=== PATIENT | male | born 1995 | race Caucasian/White ===

== ENCOUNTER 2018-06-17 12:20 | Emergency (ER) | payer OTHER ==
[2018-06-17 12:34] VITALS: BP 157/81
--- NOTE | 2018-06-17 12:48 | EDPHY ---
H & P Stated Complaint: 3 days of cough fever and flu like s/s . Near syncope today Time Seen by Provider: 06/17/18 12:28 HPI/ROS: Chief Complaint: Fever, cough, body aches, sore throat HPI: Healthy fully vaccinated 22-year-old male presenting with 3 days of intermittent fevers and chills, mildly productive cough, body aches, sore throat. He has been taking Advil about twice a day and has been taking some NyQuil. Total little lightheaded this morning. No nausea vomiting or diarrhea. No abdominal pain. No chest pain or shortness of breath. His older brother has similar symptoms. Mild headache. He has just general fatigue and malaise. ROS: 10 systems were reviewed and were negative except those elements noted in the HPI. PMH: Denies Social History: No smoking, occasional alcohol, no recreational drug use Family History: non-contributory Physical Exam: Gen: Awake, Alert, No Distress HEENT: Nose: no rhinorrhea Eyes: PERRLA, EOMI Mouth: Moist mucosa Neck: Supple, no JVD Chest: nontender, lungs clear to auscultation Heart: S1, S2 normal, no murmur Abd: Soft, non-tender, no guarding Back: no CVA tenderness, no midline tenderness Ext: no edema, non-tender Skin: no rash Neuro: CN II-XII intact, Sensation grossly intact, Strength 5/5 in bilateral upper and lower extremities - Personal History Current Tetanus/Diphtheria Vaccine: Unsure Current Tetanus Diphtheria and Acellular Pertussis (TDAP): Unsure - Medical/Surgical History Hx Asthma: Yes Hx Chronic Respiratory Disease: No Hx Diabetes: No Hx Cardiac Disease: No Hx Renal Disease: No Hx Cirrhosis: No Hx Alcoholism: No Hx HIV/AIDS: No Hx Splenectomy or Spleen Trauma: No Other PMH: Asthma. ADD - Social History Smoking Status: Never smoked Constitutional: Initial Vital Signs Temperature (C) 37.5 C 06/17/18 12:26 Heart Rate 88 06/17/18 12:26 Respiratory Rate 16 06/17/18 12:26 Blood Pressure 157/81 H 06/17/18 12:26 O2 Sat (%) 95 06/17/18 12:26 O2 Delivery Mode Room Air Allergies/Adverse Reactions: aspirin [Aspirin] Allergy (Intermediate, Verified 06/17/18 12:32) ITCH Home Medications: Medication Instructions Recorded [facility] 01/31/10 Albuterol 01/23/15 Medical Decision Making ED Course/Re-evaluation: 22-year-old male with flu-like symptoms. Normal vital signs here. He is not hypoxemic. He does not meet CDC guidelines for Tamiflu. We had a long discussion. He is opting to not had the flu test today. Will treat subjectively. Follow up with primary care. Departure - Departure Disposition: Home, Routine, Self-Care Clinical Impression: Influenza Condition: Good Instructions: Influenza (ED) Additional Instructions: Alternate acetaminophen (1000 mg) with ibuprofen (400 mg) every 4 hours as needed for fevers, chills, aches or pain. It is fine to take [id number] cold medicines. Avoid any medicine with a cough suppressant (dextromethorphan). An expectorant) ease guaifenesin) is fine. Do not take additional Tylenol if the cold medicine you're taking has acetaminophen in it. Follow up with primary care physician in 4-5 days if symptoms are not improving. Referrals: Vern Flowers MD [Primary Care Provider] - As per Instructions
== END 2018-06-17 13:00 | disposition home or self-care (01) ==
LOC: CED 12:20
DX: J11.1 Influenza due to unidentified influenza virus with other respiratory manifestations (principal)
CPT/HCPCS: 99282-ER